=== PATIENT | male | born 2000 | race Two or more races ===

== ENCOUNTER 2021-08-29 22:07 | Emergency (ER) | payer MEDICAID ==
[~2021-08-29] VITALS: Ht 180.3 cm; Wt 86.3 kg
[2021-08-29 22:14] VITALS: BP 152/75
[2021-08-29] MEDS ORDERED: dexamethasone sod phosphate 10mg/ml inj IM STA (22:17)
[2021-08-29] MEDS ORDERED: diphenhydrAMINE 25 MG/10 ML UD oral solution PO ONE (22:20)
[2021-08-29] MEDS ORDERED: AZIT250T PO (22:21)
[2021-08-29] MEDS ORDERED: azithromycin 250mg tablet PO ONE (22:25)
== END 2021-08-29 22:42 | disposition home or self-care (01) ==
LOC: ER 22:07
DX: B34.9 Viral infection, unspecified (principal); H66.91 Otitis media, unspecified, right ear
CPT/HCPCS: 87081; 87880; 96372; 99283; J1100; Q0163